=== PATIENT | female | born 1980 | race American Indian/Alaskan Native ===

== ENCOUNTER 2018-03-26 20:18 | Emergency (ER) | payer BC ==
[2018-03-26 20:28] VITALS: BP 126/70
[2018-03-26 20:32] VITALS: PULSE 94; RESP 18; TEMP 99; O2SAT 100
[2018-03-26] MEDS ORDERED: Sodium Chloride 0.9% 1,000 ML IV STA (21:22)
[2018-03-26 21:59] LABS: BASO # 0.1 K/uL (0.0-0.2); BASO % 0.9 % (0.0-2.0); EOS # 0.3 K/uL (0.0-0.7); EOS % 3.5 % (0.0-4.0); HEMOGLOBIN 11.1 g/dL (12.0-16.0); LYMPH # 2.7 K/uL (1.0-4.3); LYMPH % 30.6 % (20.0-40.0); MEAN CELL VOLUME 76.8 fl (81.0-99.0); MEAN CORPUSCULAR HEMOGLOBIN 25.6 pg (27.0-31.0); MEAN CORPUSCULAR HGB CONC 33.3 g/dL (33.0-37.0); MEAN PLATELET VOLUME 9.1 fl (7.2-11.7); MONO # 0.7 K/uL (0.0-0.8); MONO % 8.2 % (0.0-10.0); NEUT # 5.1 K/uL (1.8-7.0); NEUT % 56.8 % (50.0-75.0); NRBC % 0.1 % (0.0-0.0); RBC 4.36 Mil/uL (3.80-5.20); RED CELL DISTRIBUTION WIDTH 15.2 % (11.5-14.5)
[2018-03-26 22:03] LABS: SQUAMOUS EPITHIAL 1 /hpf (0-5); URINE BACTERIA RARE (<OCC); URINE BILIRUBIN NEGATIVE (NEGATIVE); URINE BLOOD NEGATIVE (NEGATIVE); URINE CLARITY SLIGHTY-CLOUDY (Clear); URINE COLOR YELLOW (YELLOW); URINE GLUCOSE (UA) NEG (Normal); URINE LEUKOCYTE ESTERASE NEG Leu/uL (Negative); URINE PROTEIN NEGATIVE (NEGATIVE); URINE UROBILINOGEN 0.2-1.0 mg/dL (0.2-1.0)
[2018-03-26 22:21] LABS: ALB/GLOB RATIO 1.2 (1.0-2.1); ALBUMIN 4.3 g/dL (3.5-5.0); ALT/SGPT 24 U/L (9-52); AST/SGOT 22 U/L (14-36); BLOOD UREA NITROGEN 12 mg/dl (7-17); CALCIUM 9.6 mg/dL (8.4-10.2); GFR AFRICAN-AMERICAN > 60; GFR NON-AFRICAN AMERICAN > 60; LIPASE 62 U/L (23-300)
--- NOTE | 2018-03-26 22:40 | ED PDOC ---
HPI: Abdomen Time Seen by Provider: 03/26/18 20:44 Chief Complaint (Nursing): Female Genitourinary Chief Complaint (Provider): Female Genitourinary History Per: Patient History/Exam Limitations: no limitations Onset/Duration Of Symptoms: Intermittent Episodes (over one month) Current Symptoms Are (Timing): Still Present Additional Complaint(s): Patient complains of intermittent right flank pain for the past month, worse when she eats greasy foods. She states the pain over the past two days has become unbearable, prompting her visit. Patient also notes that she has a history of kidney stones which required a lithotripsy nine years ago. Reports taking advil and increase in water intake without improvement of pain . Otherwise: (-) trauma, (-) nausea, (-) vomiting, (-) diarrhea, (-) fever, (-) melena, (-) hematochezia. Has a history of prior abdominal surgery. PMD: Reynold Garcia Past Medical History Reviewed: Historical Data, Nursing Documentation, Vital Signs Vital Signs: Last Vital Signs Temp 99 F 03/26/18 20:26 Pulse 94 H 03/26/18 20:26 Resp 18 03/26/18 20:26 BP 126/70 03/26/18 20:26 Pulse Ox 100 03/26/18 23:34 - Medical History PMH: Kidney Stones, Chronic Kidney Disease Other PMH: ovarian cancer - Surgical History Other surgeries: myomectomy - Family History Family History: States: Unknown Family Hx - Social History Current smoker - smoking cessation education provided: No Alcohol: None Drugs: Denies - Allergies Allergies/Adverse Reactions: Allergies Allergy/AdvReac Type Severity Reaction Status Date / Time No Known Allergies Allergy Verified 03/26/18 20:26 Review of Systems ROS Statement: Except As Marked, All Systems Reviewed And Found Negative Constitutional: Negative for: Other (trauma) Gastrointestinal: Positive for: Abdominal Pain (right flank pain). Negative for : Nausea, Vomiting, Diarrhea, Melena, Hematochezia Physical Exam - Reviewed Nursing Documentation Reviewed: Yes Vital Signs Reviewed: Yes - Physical Exam Comments: GENERAL APPEARANCE: Patient is awake, alert, oriented x 3, in no acute distress. Comfortable. SKIN: Warm, dry; (-) cyanosis. EYES: (-) conjunctival pallor, (-) scleral icterus. ENMT: Mucous membranes are moist. NECK: (-) tenderness, (-) stiffness, (-) lymphadenopathy. CHEST AND RESPIRATORY: (-) rales, (-) rhonchi, (-) wheezes; breath sounds equal bilaterally. HEART AND CARDIOVASCULAR: (-) irregularity; (-) murmur, (-) gallop. ABDOMEN AND GI: (-) distention. Bowel sounds active; (+) mild tenderness to right flank, (-) guarding, (-) rebound, (-) palpable masses, (-) CVA tenderness bilaterally. EXTREMITIES: (-) deformity, (-) edema, (+) distal pulses. NEURO AND PSYCH: Mental status as above; (-) focal findings. - Laboratory Results Result Diagrams: 03/26/18 21:52 03/26/18 21:52 - ECG O2 Sat by Pulse Oximetry: 100 (RA) Pulse Ox Interpretation: Normal Medical Decision Making Medical Decision Making: Initial Impression: r/o renal colic, consider biliary colic Time: 21:24 Initial Plan: --Abd/Pelvis w/o PO contrast CT --CMP --Lipase --Urine --CBC with differential --Sodium chloride 0.9% 1000ml IV --Toradol 15mg IVP --Urine culture --Urinalysis Labs reviewed : uhcg (-), cbc/cmp/ua wnl. CT A/P w/o contrast: FINDINGS: Lung bases: Unremarkable. No mass nor consolidation. ABDOMEN: Liver: Unremarkable. No solid mass. Gallbladder and bile ducts: Unremarkable. No calcified stones. No ductal dilatation. Pancreas: Unremarkable. No ductal dilatation. Spleen: Unremarkable. No splenomegaly. Adrenals: Unremarkable. No mass. Kidneys and ureters: No obstructing stones. No hydronephrosis. Non-obstructing right upper calyceal stone. Stomach and bowel: Distended stomach filled with food debris. No bowel obstruction. No mucosal thickening. PELVIS: Appendix: No findings to suggest acute appendicitis. Bladder: Unremarkable. No stones nor mass. Reproductive: Bulky, enlarged, heterogeneous uterus (tilts to the right of midline). Left adnexal cystic mass (2.8 cm size). ABDOMEN and PELVIS: Intraperitoneal space: Unremarkable. No free air. No significant fluid collection. Bones/joints: No acute fracture nor dislocation. Soft tissues: Unremarkable. Vasculature: Unremarkable. No abdominal aortic aneurysm. Lymph nodes: Unremarkable. No enlarged lymph nodes. IMPRESSION: No acute pathology. No hydronephrosis is appreciated. No obstructing stones are visualized. Non-obstructing right upper renal pole calyceal stone. Probable fibroid uterus. Probable left ovarian cyst (2.8 cm size). Dictated and Authenticated by: Megan Fischer MD 03/26/2018 10:59 PM Eastern Time ([place] & [place]) On re-evaluation, patient reports improvement of symptoms, denies any pain at this time. On exam, patient remains AAOx3, in no acute distress. Abdomen soft, non-tender. Lab results reviewed and d/w the patient. Diagnostic results d/w the patient in great detail. Diagnosis of flank pain, possibly due to enlarged fibroid uterus d/w the patient. Based on history, exam and diagnostic results, plan will be for outpatient follow up. Patient instructed to follow-up with pmd and qualitative field coordinator in 1-2 days without fail. Return to the emergency room at any time for any new or worsening symptoms. Patient states she fully agrees with and understands discharge instructions. States that she agrees with the plan and disposition. Verbalized and repeated discharge instructions and plan. I have given the patient opportunity to ask any additional questions. Scribe Attestation: Documented by Elyse Robles, acting as a scribe for Monik Lazar PA-C. Provider Scribe Attestation: All medical entries made by the Scribe were at my direction and personally dictated by me. I have reviewed the chart and agree that the record accurately reflects my personal performance of the history, physical exam, medical decision making, and the department course for this patient. I have also personally directed, reviewed, and agree with the discharge instructions and disposition. Disposition - Clinical Impression Clinical Impression: Flank pain, Fibroid, uterine - Patient ED Disposition Is Patient to be Admitted: No Counseled Patient/Family Regarding: Studies Performed, Diagnosis, Need For Followup - Disposition Disposition: Routine/Home Disposition Time: 23:00 Condition: STABLE Additional Instructions: Thank you for letting us take care of you today. You were treated for R flank pain. The emergency medical care you received today was directed at your acute symptoms. Return to the Emergency Department if your symptoms worsen, do not improve, or if you have any other problems. Please contact your primary care doctor and your qualitative field coordinator in 2 days for re- evaluation and follow up. Bring any paperwork you were given at discharge with you along with any medications you are taking to your follow up visit. Our treatment cannot replace ongoing medical care by a primary care provider (PCP) outside of the emergency department. Thank you for allowing the [facility] team to be part of your care today. Instructions: Uterine Fibroids, Flank Pain (DC) Forms: [employer] ([place]ian)
--- NOTE | 2018-03-27 14:08 | CT ---
PROCEDURE: CT Abdomen and Pelvis without intravenous contrast HISTORY: R flank pain COMPARISON: Noncontrast abdomen pelvis CT 02/05/2009. TECHNIQUE: Helical CT of the abdomen and pelvis was performed without oral or intravenous contrast as per referring physician request. Contrast dose: None Radiation dose: Total exam DLP = 771.98 mGy-cm. This CT exam was performed using one or more of the following dose reduction techniques: Automated exposure control, adjustment of the mA and/or kV according to patient size, and/or use of iterative reconstruction technique. FINDINGS: LOWER THORAX: Unremarkable. LIVER: Unremarkable. No gross lesion or ductal dilatation. GALLBLADDER AND BILE DUCTS: Unremarkable. PANCREAS: Unremarkable. No gross lesion or ductal dilatation. SPLEEN: Unremarkable. ADRENALS: Unremarkable. No mass. KIDNEYS AND URETERS: No signal change bilaterally including an intrarenal calculus at the upper pole right kidney versus intraparenchymal 9 mm calcification. No left-sided radiodense urolithiasis appreciable. VASCULATURE: Unremarkable. No aortic aneurysm. BOWEL: Stomach is distended with retained food. There is no bowel obstruction evident. Retained material is mildly prominent throughout large and may indicating element of constipation. Lack of oral and intravenous contrast agents limits evaluation of the gastrointestinal tract. APPENDIX: Not identified. PERITONEUM: Unremarkable. No free fluid. No free air. LYMPH NODES: Unremarkable. No enlarged lymph nodes. BLADDER: Unremarkable. REPRODUCTIVE: Fibroid uterus suggested by heterogeneous uterine density. Left ovarian cyst measures 2.8 cm. Greater characterization can provided by transvaginal pelvic ultrasound clinically warranted. BONES: No acute fracture. OTHER FINDINGS: None. IMPRESSION: 1. No obstructive uropathy appreciated bilaterally. No perinephric reaction bilaterally. A 9 mm intrarenal calculus or parenchymal calcifications stable at the upper pole right kidney. 2. Lack of contrast agents limits evaluation the remaining abdominal pelvic viscera with no definite acute abdominal or pelvic findings appreciable. 3. Potential constipation. 4. Fibroid uterus. Left ovarian cyst 2.8 cm suggested. Concordant preliminary report from [facility], 03/26/2018.
== END 2018-03-26 23:40 | disposition home or self-care (01) ==
LOC: H.ER 20:18
DX: D25.9 Leiomyoma of uterus, unspecified (principal); N20.0 Calculus of kidney; Z85.43 Personal history of malignant neoplasm of ovary
CPT/HCPCS: 74176; 80053; 81003; 81025; 83690; 85025; 87086; 96361; 96374; 99285; J1885; J7030